=== PATIENT | male | born 1995 | race Caucasian/White ===

== ENCOUNTER 2020-10-02 06:56 | Emergency (ER) | payer OTHER ==
[2020-10-02 07:34] VITALS: BP 136/84; PULSE 69; TEMP 97; BMI 35.5
[2020-10-02] MEDS ORDERED: KETOROLAC TROMETHAMINE 15 MG/ML VIAL ONE (08:52)
[2020-10-02] MEDS: KETOROLAC TROMETHAMINE 15 MG/ML VIAL IM ONE ×2 (08:57→09:00)
== END 2020-10-02 09:35 | disposition home or self-care (01) ==
LOC: JER 06:56
PROC: 3E0233Z Introduction of Anti-inflammatory into Muscle, Percutaneous Approach (ICD-10-PCS; principal; 2020-10-02)
DX: M25.511 Pain in right shoulder (principal)
CPT/HCPCS: 73030-TC-RT-FY; 99284-25